=== PATIENT | male | born 1940 | race Caucasian/White ===

== ENCOUNTER 2016-08-12 15:29 | Emergency (ER) | payer MEDICARE ==
[~2016-08-12] VITALS: Ht 190.5 cm; Wt 74.8 kg
[~2016-08-12 15:29] MED LIST: ACYCLOVIR800 MG PO; AMOXICILLIN AND1 TA2 PO; ASPIRIN 81MG TA81 MG PO; ASPIRIN EC325 M1; ASPIRIN EC325 MG PO; AVODART0.5 MG PO; AZILECT1 MG PO; BACTRIM DS 8001 TA1 PO; BACTRIM DS 8001 TAB PO; CALCIUM CARBONA1 TAB PO; CARBIDOPA AND L1 TA2 PO; CARBIDOPA/LE1 TABLE2 PO; CARVEDILOL3.125 M1 PO; CARVEDILOL3.125 MG PO; CEFUROXIME AXE250 MG PO; CENTRUM SILVER1 TAB PO; CIPRO 500MG TA500 MG PO; CIPROFLOXACIN500 M2 PO; COREG 3.125M3.125 MG PO; CRESTOR5 MG PO; DICLOFENAC 50MG50 MG PO; DIFLUCAN150 MG PO; DIGESTIVE ADVANTAGE PO; DITROPAN 5MG TAB5 MG PO; DOXYCYCLINE; Docusate Sodiu100 MG PO; ERYTHROMYCIN 2250 M3 PO; EVAC-U-GEN8.6 M1 PO; FLOMAX 0.4MG C0.4 MG PO; FUROSEMIDE40 MG PO; GABAPENTIN 400400 MG PO; HIPREX1 GM PO; HYDROCODONE 7.51 TAB PO; HYDROXYZINE 25M25 MG PO; INDOCIN25 M1; INDOCIN25 MG PO; ISO GENTAM120 MG/100 IV; JANUVIA50 MG PO; LEVOFLOXACIN 5500 MG PO; LISINOPRIL2.5 MG NG; METAXALONE800 MG PO; METFORMIN1000 MG; METFORMIN1000 MG PO; METHOCARBAMOL750 M1 PO; MIRALAX17 GM/PACK PO; NAPROXEN SODIU500 MG PO; NIACIN TIME RE500 MG; NITROFURANTOIN100 M4 PO; NORTRIPTYLINE H50 M1 PO; NYSTATIN C30 GM/TUBE EX; NYSTATIN TO30 GM/BOT TP; OMEPRAZOLE20 MG PO; PLAVIX 75MG TAB75 MG PO; PRAVASTATIN 40M40 MG PO; PROBIOTIC FORMU1 CA1 PO; RANITIDINE HCL150 MG PO; REMERON15 MG PO; REQUIP3 MG; ROCEPHIN 1 GM AD1 GM IM; ROPINIROLE HYDRO1 MG PO; ROPINIROLE HYDRO3 MG PO; SENNA8.6 M2 PO; SKELAXIN 800MG800 MG PO; STOOL SOFTENER240 MG PO; SULFAMETHOXAZOL PO; TOVIAZ4 MG PO; TRADJENTA5 MG PO; TRAMADOL 50MG T50 M1 PO; VANCOCIN PO; VITAMIN D31000 IU PO; VITAMIN D50000 I1 PO; ZANTAC 150150 MG PO; Zofran4 MG PO
--- NOTE | 2016-08-12 15:43 | Emergency Room Report ---
History of Present Illness Time Seen by [id number] Presenting Problem in Triage Pt arrived:Ambulance Stretcher Presenting Problem:BEING TREATED FOR UTI CURRENTLY WITH IV ATB'S ; FAMILY REQUEST PATIENT BE SENT TO ED TO BE EVALUATED; THAT HE DOESN'T LOOK WELL; NURSE REPORT STATES HASN'T WITNESSED ANY ABNORMALITIES, BUT THAT FAMILY STATED HE VOMITED. ALERT, ORIENTED TO SELF AND PLACE. GCS 14. PT WITH MINIMUM MOVEMENT DUE TO DISEASE PROCESSES. 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 N Clinical Suspician of Infection? N Mental Status: 1 - Regular (Normal Baseline) Sepsis Risk:Low Sepsis Risk Have you (or family members/close friends) recently traveled outside the [place]? N If Yes, where/when: Have you had exposure to infectious disease within the past month? TB? Other? Specify: Comment History obtained from patient and family, predominantly from family. They state that he was just released from this hospital on 3 days ago where he was admitted for vomiting. He is also being treated for urinary tract infection. He has a long-standing suprapubic catheter. He has a PICC line for intravenous antibiotics. He was sent to [facility] for rehabilitation. Family states that he looked good when he was discharged, but has declined in the past 2 days. Today he is vomiting all day and they describe it as brown and foul smelling, possibly feculent. They state that prior to this illness he was living at home, ambulatory. He has not walked since he was admitted to the hospital recently. The patient complains of hurting all over. ALLERGIES Coded Allergies: No Known Allergies (08/12/16) Home Medications Active Scripts Erythromycin (Erythromycin 250MG. Cap) 250 MG PO AC 7 Days Prov: 08/09/16 Gentamicin in NaCl, Iso-Osm (Iso Gentamicin 120 MG/100 Ml) 360 MG IV DAILY 14 Days Prov: 08/09/16 Reported Medications METFORMIN HCL (Metformin) 1,000 MG PO BID #60 TAB ROPINIROLE HCL (Ropinirole 1MG) 1.5 MG PO BID Sitagliptin Phosphate (Januvia) 100 MG PO DAILY Carvedilol (Carvedilol 3.125MG) 3.125 MG PO BID Methenamine Hippurate (Hiprex) 1 GM PO BID CARBIDOPA 25/LEVODOPA 100 (Carbidopa-Levodopa 25-100 Tab) 2 TABLET PO QID ROPINIROLE HCL (Ropinirole Hydrochloride) 3 MG PO QHS #120 Methocarbamol 750 MG PO PRN PRN MUSCLE RELAXER #180 TAB ASPIRIN (Aspirin) 81 MG PO DAILY Oxybutynin Chloride (Ditropan 5MG Tab) 5 MG PO BID #60 Omeprazole (Omeprazole 20MG) 20 MG PO DAILY Hydroxyzine Pamoate (Hydroxyzine) 25 MG PO Q6HP PRN ANXIETY Sennosides (Evac-U-Gen) 17.2 MG PO PRN PRN CONSTIPATION Rosuvastatin Calcium (Crestor) 5 MG PO QHS Polyethylene Glycol 3350 (Miralax) 17 GM PO DAILY Discontinued Reported Medications CEFUROXIME AXETIL (Cefuroxime 250MG Tab) 500 MG PO BID History Medical History General CAD? No Angina: Yes OK: Yes Hypertension? Yes Hyperlipidemia? Yes CHF? No DVT? No PE? No COPD? No Asthma? No Anemia? No GERD? No Gastric ulcers? No GI Bleed? No Hernia? No Thyroid Problems? No Hypothyroidism? No CVA? No Seizures? No Diabetes? Yes Insulin Dependent: No Insulin Pump: No Home FSBS? Yes Renal Insuffiency? No End Stage Renal Disease? No UTI? Yes Stones? No BPH? Yes GB Disease: No Nephritic Syndrome? No Asplenia? No Hepatitis? No Sickle Cell Disease? No Arthritis? Yes Migraines? No Cataracts? No Glaucoma? No MRSA? No HIV? No TB? No Anxiety? Yes Depression? Yes Cancer? Yes Site: PROSTATE More? No Immunization Hx Ped.Immunizations UTD Yes DT/Tetanus > 10 Years Ago Flu 2016-17FSN Pneumonia Received In Past Surgical Hx Previous Surgery?Y CABG 4 VESSEL 1989 BACK SURGERY X4 HEMMORHOIDECTOMY 1975 TONSILLECTOMY 1963 CERVICAL DISC SURGERY CATARACT SURGERY Prostate Procedures SUPRAPUBIC CATHETER Family History Family Hx Diabetes Yes CAD Yes Hypertension Yes Hyperlipidemia Yes Cancer Yes TB No Social History Smoking Hx Smoker: Former Smoker Tobacco: No Type Cigarettes Packs/day < 1 Pack Are you/the child exposed to second-hand smoke: No Alcohol Alcohol: No Review of Systems All Other Systems Reviewed and Negative Constitutional denies fever, malaise, weakness Gastrointestinal see HPI, abdominal pain (slight), vomiting Physical Exam Vital Signs Vital Signs Date Time Temp Pulse Resp B/P Pulse O2 O2 Flow FiO2 Ox Delivery Rate 08/12 1933 97.9 83 18 112/75 97 08/12 1919 83 18 112/75 97 08/12 1530 97.9 88 18 116/77 98 General Appearance appears chronically ill Eye Exam - bilateral eye normal exam, bilateral eye PERRL, bilateral eye EOMI Ear, Nose, Throat hearing grossly normal, normal ENT inspection Neck normal inspection, non-tender, supple, full range of motion Respiratory Status Yes: trachea midline, chest symmetrical, non tender chest. No: respiratory distress. Lung Sounds bilateral: normal breath sounds, lungs clear. Cardiovascular normal exam, regular rate/rhythm, no peripheral edema, no gallop, no JVD, no murmur, no rub, normal peripheral pulses Peripheral Pulses Pulses normal Yes Gastrointestinal normal bowel sounds, soft, no organomegaly, hernia (epigastric, reducible), suprapubic catheter Extremities normal inspection Neurologic alert, reconciliation accountant II-XII nml as tested, normal exam, no motor/sensory deficits, oriented x 3 Mental status normal mood/affect Skin intact, normal color, warm/dry Medical Decision Making LABS/Meds/Orders Pt receiving controlled substance in ED? No Results/Orders Laboratory Tests 08/12/16 1840: Lactic Acid 1.2 08/12/16 1613: Sodium 141, Potassium 4.5, Chloride 105, Carbon Dioxide 27, BUN 28 H, Creatinine 1.1, Estimated Creat Clear 62, Estimated GFR (MDRD) 65, Glucose 95, Calcium 9.1, Total Bilirubin 0.3, AST 14 L, ALT 16, Alkaline Phosphatase 119 H , Troponin I < 0.02, Total Protein 7.6, Albumin 2.8 L, Globulin 4.8 H, Albumin /Globulin Ratio 0.6 L, Amylase 111, Lipase 220, WBC 5.7, RBC 3.96 L, Hgb 11.7 L, Hct 36.3 L, MCV 91.6, RDW 15.1, Plt Count 204, MPV 6.4 L, Gran % 75.9, Gran # 4.3, Lymphocytes % 15.1, Monocytes % 6.9, Eosinophils % 1.9, Basophils % 0.2, Lymphocytes # 0.9, Monocytes # 0.4, Eosinophils # 0.1, Basophils # 0.0, PUBS MCHC 32.2, MCH 29.5 Current Medication Orders Sig/Wang Start time Last Medication Dose Route Stop Time Status Admin Sodium Chloride 1,000 ML .Q1H1M 08/12 1715 DC 08/12 IV 08/12 1815 1815 Sodium Chloride 1,000 ML .STK-MED ONE 08/12 1707 DC IV Sodium Chloride 10 ML PRN PRN 08/12 1600 AC IV 08/13 1553 Orders Procedure Date/time Status DIET-NOTHING BY MOUTH 08/12 D Active LACTIC ACID 08/[address] ABD & PELVIS W/O CONTRAST 08/12 1558 Active 12 LEAD EKG-JUANSON (INITIAL) 08/12 1555 Active ELECTROCARDIOGRAM REQUEST 08/[address] ABD/PELVIS REQ 08/12 1555 Complete CHEST-AP VIEW ONLY 08/12 1555 Active IV SALINE LOCK 08/12 1555 Active TROPONIN I 08/12 1555 Complete LIPASE 08/12 1555 Complete CBC WITH AUTO DIFF 08/12 1555 Complete CHEM 12 PROFILE 08/12 1555 Complete AMYLASE 08/12 1555 Complete CM/EKG CM/EKG Comments EKG interpreted by Tyree Bain MD: Rhythm: sinus Rate: 82 [place]: normal Ectopy: none Conduction: normal ST Segment Changes: Nonspecific T Wave Changes: Nonspecific Q Waves: none No evidence of acute ischemia or injury XRAY/CT/US XRAY/CT/US XRAY chest Comment X-ray interpreted by Tyree Bain M.D.: Rotated, no definite infiltrate. CT abdomen, pelvis Comment CT scan interpreted by [facility] radiologist. 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 No free air. Mild improvement in moderate to severe LEFT hydronephrosis. Large amount of stool in colon, constipation. Progress - 5:25 PM: Case discussed with Dr. Boston. Surgery will be consult regarding whether the patient requires transfer versus admission here. 5:30 p.m.: Discussed case with Dr. Gaitan, surgeon composition teacher. He suggested patient be transferred to [place]. The patient's family prefers [facility], where his urologist practices. He is supposed to have a suprapubic catheter change tomorrow. Dr. Gaitan feels [facility] would be appropriate if they will accept him. Otherwise he suggests [facility]. Family prefers [facility] as a second choice. 6:13 PM: Case discussed with Dr. Scanlon, surgeon at [facility]. He will accept the patient, but once the hospitalist to admit. Hospitalist will be contacted by transfer center to call us. 6:35 PM: Case discussed with Dr. Maxwell, hospitalist. He accepts the patient. Transfer center will call back with bed assignment. 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
--- NOTE | 2016-08-12 15:43 | Emergency Room Report ---
History of Present Illness Time Seen by [id number] Presenting Problem in Triage Pt arrived:Ambulance Stretcher Presenting Problem:BEING TREATED FOR UTI CURRENTLY WITH IV ATB'S ; FAMILY REQUEST PATIENT BE SENT TO ED TO BE EVALUATED; THAT HE DOESN'T LOOK WELL; NURSE REPORT STATES HASN'T WITNESSED ANY ABNORMALITIES, BUT THAT FAMILY STATED HE VOMITED. ALERT, ORIENTED TO SELF AND PLACE. GCS 14. PT WITH MINIMUM MOVEMENT DUE TO DISEASE PROCESSES. 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 N Clinical Suspician of Infection? N Mental Status: 1 - Regular (Normal Baseline) Sepsis Risk:Low Sepsis Risk Have you (or family members/close friends) recently traveled outside the [place]? N If Yes, where/when: Have you had exposure to infectious disease within the past month? TB? Other? Specify: Comment History obtained from patient and family, predominantly from family. They state that he was just released from this hospital on 3 days ago where he was admitted for vomiting. He is also being treated for urinary tract infection. He has a long-standing suprapubic catheter. He has a PICC line for intravenous antibiotics. He was sent to [facility] for rehabilitation. Family states that he looked good when he was discharged, but has declined in the past 2 days. Today he is vomiting all day and they describe it as brown and foul smelling, possibly feculent. They state that prior to this illness he was living at home, ambulatory. He has not walked since he was admitted to the hospital recently. The patient complains of hurting all over. ALLERGIES Coded Allergies: No Known Allergies (08/12/16) Home Medications Active Scripts Erythromycin (Erythromycin 250MG. Cap) 250 MG PO AC 7 Days Prov: 08/09/16 Gentamicin in NaCl, Iso-Osm (Iso Gentamicin 120 MG/100 Ml) 360 MG IV DAILY 14 Days Prov: 08/09/16 Reported Medications METFORMIN HCL (Metformin) 1,000 MG PO BID #60 TAB ROPINIROLE HCL (Ropinirole 1MG) 1.5 MG PO BID Sitagliptin Phosphate (Januvia) 100 MG PO DAILY Carvedilol (Carvedilol 3.125MG) 3.125 MG PO BID Methenamine Hippurate (Hiprex) 1 GM PO BID CARBIDOPA 25/LEVODOPA 100 (Carbidopa-Levodopa 25-100 Tab) 2 TABLET PO QID ROPINIROLE HCL (Ropinirole Hydrochloride) 3 MG PO QHS #120 Methocarbamol 750 MG PO PRN PRN MUSCLE RELAXER #180 TAB ASPIRIN (Aspirin) 81 MG PO DAILY Oxybutynin Chloride (Ditropan 5MG Tab) 5 MG PO BID #60 Omeprazole (Omeprazole 20MG) 20 MG PO DAILY Hydroxyzine Pamoate (Hydroxyzine) 25 MG PO Q6HP PRN ANXIETY Sennosides (Evac-U-Gen) 17.2 MG PO PRN PRN CONSTIPATION Rosuvastatin Calcium (Crestor) 5 MG PO QHS Polyethylene Glycol 3350 (Miralax) 17 GM PO DAILY Discontinued Reported Medications CEFUROXIME AXETIL (Cefuroxime 250MG Tab) 500 MG PO BID History Medical History General CAD? No Angina: Yes DC: Yes Hypertension? Yes Hyperlipidemia? Yes CHF? No DVT? No PE? No COPD? No Asthma? No Anemia? No GERD? No Gastric ulcers? No GI Bleed? No Hernia? No Thyroid Problems? No Hypothyroidism? No CVA? No Seizures? No Diabetes? Yes Insulin Dependent: No Insulin Pump: No Home FSBS? Yes Renal Insuffiency? No End Stage Renal Disease? No UTI? Yes Stones? No BPH? Yes GB Disease: No Nephritic Syndrome? No Asplenia? No Hepatitis? No Sickle Cell Disease? No Arthritis? Yes Migraines? No Cataracts? No Glaucoma? No MRSA? No HIV? No TB? No Anxiety? Yes Depression? Yes Cancer? Yes Site: PROSTATE More? No Immunization Hx Ped.Immunizations UTD Yes DT/Tetanus > 10 Years Ago Flu 2016-17FSN Pneumonia Received In Past Surgical Hx Previous Surgery?Y CABG 4 VESSEL 1989 BACK SURGERY X4 HEMMORHOIDECTOMY 1975 TONSILLECTOMY 1963 CERVICAL DISC SURGERY CATARACT SURGERY Prostate Procedures SUPRAPUBIC CATHETER Family History Family Hx Diabetes Yes CAD Yes Hypertension Yes Hyperlipidemia Yes Cancer Yes TB No Social History Smoking Hx Smoker: Former Smoker Tobacco: No Type Cigarettes Packs/day < 1 Pack Are you/the child exposed to second-hand smoke: No Alcohol Alcohol: No Review of Systems All Other Systems Reviewed and Negative Constitutional denies fever, malaise, weakness Gastrointestinal see HPI, abdominal pain (slight), vomiting Physical Exam Vital Signs Vital Signs Date Time Temp Pulse Resp B/P Pulse O2 O2 Flow FiO2 Ox Delivery Rate 08/12 1933 97.9 83 18 112/75 97 08/12 1919 83 18 112/75 97 08/12 1530 97.9 88 18 116/77 98 General Appearance appears chronically ill Eye Exam - bilateral eye normal exam, bilateral eye PERRL, bilateral eye EOMI Ear, Nose, Throat hearing grossly normal, normal ENT inspection Neck normal inspection, non-tender, supple, full range of motion Respiratory Status Yes: trachea midline, chest symmetrical, non tender chest. No: respiratory distress. Lung Sounds bilateral: normal breath sounds, lungs clear. Cardiovascular normal exam, regular rate/rhythm, no peripheral edema, no gallop, no JVD, no murmur, no rub, normal peripheral pulses Peripheral Pulses Pulses normal Yes Gastrointestinal normal bowel sounds, soft, no organomegaly, hernia (epigastric, reducible), suprapubic catheter Extremities normal inspection Neurologic alert, director of regional sales II-XII nml as tested, normal exam, no motor/sensory deficits, oriented x 3 Mental status normal mood/affect Skin intact, normal color, warm/dry Medical Decision Making LABS/Meds/Orders Pt receiving controlled substance in ED? No Results/Orders Laboratory Tests 08/12/16 1840: Lactic Acid 1.2 08/12/16 1613: Sodium 141, Potassium 4.5, Chloride 105, Carbon Dioxide 27, BUN 28 H, Creatinine 1.1, Estimated Creat Clear 62, Estimated GFR (MDRD) 65, Glucose 95, Calcium 9.1, Total Bilirubin 0.3, AST 14 L, ALT 16, Alkaline Phosphatase 119 H , Troponin I < 0.02, Total Protein 7.6, Albumin 2.8 L, Globulin 4.8 H, Albumin /Globulin Ratio 0.6 L, Amylase 111, Lipase 220, WBC 5.7, RBC 3.96 L, Hgb 11.7 L, Hct 36.3 L, MCV 91.6, RDW 15.1, Plt Count 204, MPV 6.4 L, Gran % 75.9, Gran # 4.3, Lymphocytes % 15.1, Monocytes % 6.9, Eosinophils % 1.9, Basophils % 0.2, Lymphocytes # 0.9, Monocytes # 0.4, Eosinophils # 0.1, Basophils # 0.0, PUBS MCHC 32.2, MCH 29.5 Current Medication Orders Sig/Wang Start time Last Medication Dose Route Stop Time Status Admin Sodium Chloride 1,000 ML .Q1H1M 08/12 1715 DC 08/12 IV 08/12 1815 1815 Sodium Chloride 1,000 ML .STK-MED ONE 08/12 1707 DC IV Sodium Chloride 10 ML PRN PRN 08/12 1600 AC IV 08/13 1553 Orders Procedure Date/time Status DIET-NOTHING BY MOUTH 08/12 D Active LACTIC ACID 08/[address] ABD & PELVIS W/O CONTRAST 08/12 1558 Active 12 LEAD EKG-JUANSON (INITIAL) 08/12 1555 Active ELECTROCARDIOGRAM REQUEST 08/[address] ABD/PELVIS REQ 08/12 1555 Complete CHEST-AP VIEW ONLY 08/12 1555 Active IV SALINE LOCK 08/12 1555 Active TROPONIN I 08/12 1555 Complete LIPASE 08/12 1555 Complete CBC WITH AUTO DIFF 08/12 1555 Complete CHEM 12 PROFILE 08/12 1555 Complete AMYLASE 08/12 1555 Complete CM/EKG CM/EKG Comments EKG interpreted by Tyree Bain MD: Rhythm: sinus Rate: 82 [place]: normal Ectopy: none Conduction: normal ST Segment Changes: Nonspecific T Wave Changes: Nonspecific Q Waves: none No evidence of acute ischemia or injury XRAY/CT/US XRAY/CT/US XRAY chest Comment X-ray interpreted by Tyree Bain M.D.: Rotated, no definite infiltrate. CT abdomen, pelvis Comment CT scan interpreted by [facility] radiologist. 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 No free air. Mild improvement in moderate to severe LEFT hydronephrosis. Large amount of stool in colon, constipation. Progress - 5:25 PM: Case discussed with Dr. Boston. Surgery will be consult regarding whether the patient requires transfer versus admission here. 5:30 p.m.: Discussed case with Dr. Gaitan, surgeon education associate. He suggested patient be transferred to [place]. The patient's family prefers [facility], where his urologist practices. He is supposed to have a suprapubic catheter change tomorrow. Dr. Gaitan feels [facility] would be appropriate if they will accept him. Otherwise he suggests [facility]. Family prefers [facility] as a second choice. 6:13 PM: Case discussed with Dr. Scanlon, surgeon at [facility]. He will accept the patient, but once the hospitalist to admit. Hospitalist will be contacted by transfer center to call us. 6:35 PM: Case discussed with Dr. Maxwell, hospitalist. He accepts the patient. Transfer center will call back with bed assignment. 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
[2016-08-12 16:26] LABS: HEMOGLOBIN 11.7 g/dL (14.1-18.0); LYMPH # 0.9 K/mm3 (0.7-4.5); LYMPH % 15.1 % (10-50)
[2016-08-12 16:40] LABS: BUN 28 mg/dL (7-18); GFR (ESTIMATED) 65 ML/MIN (>60)
[2016-08-12 19:34] VITALS: BP 112/75
--- NOTE | 2016-08-13 11:12 | RADIOLOGY REPORT PS360 ---
CHEST-AP VIEW ONLY ORDERING PHYSICIAN : Tyree Bain MD PATIENT AGE: 75 years GENDER: Male INDICATION: chest symptoms vomiting vomiting PROCEDURE:Supine AP abdomen CHEST-AP VIEW ONLY COMPARISON: None available FINDINGS:-- Patient contracted unable straighten thus this limited chest film rotated the left and distorted. PICC line enters from the right arm with tip at SVC Right lung appears clear mild hyperexpansion Appears to be infiltrate at the medial left lung base, left infrahilar region, medial left base retrocardiac region on this study. A follow-up more optimal AP chest would be helpful to confirm left upper lung field appears clear. Median sternotomy & CABG No pneumothorax. No pleural effusion. Heart appears mildly enlarged with no CHF . Brower rods with postsurgical changes of lumbar spine & lower thoracic spine IMPRESSION Limited chest film very rotated to the left distorts the chest. Appears to be patchy moderate infiltrate medial left lung base/LLL on this chest film Correlation required. Follow-up suggested
--- NOTE | 2016-08-13 11:12 | RADIOLOGY REPORT PS360 ---
CHEST-AP VIEW ONLY ORDERING PHYSICIAN : Tyree aBin MD PATIENT AGE: 75 years GENDER: Male INDICATION: chest symptoms vomiting vomiting PROCEDURE:Supine AP abdomen CHEST-AP VIEW ONLY COMPARISON: None available FINDINGS:-- Patient contracted unable straighten thus this limited chest film rotated the left and distorted. PICC line enters from the right arm with tip at SVC Right lung appears clear mild hyperexpansion Appears to be infiltrate at the medial left lung base, left infrahilar region, medial left base retrocardiac region on this study. A follow-up more optimal AP chest would be helpful to confirm left upper lung field appears clear. Median sternotomy & CABG No pneumothorax. No pleural effusion. Heart appears mildly enlarged with no CHF . Brower rods with postsurgical changes of lumbar spine & lower thoracic spine IMPRESSION Limited chest film very rotated to the left distorts the chest. Appears to be patchy moderate infiltrate medial left lung base/LLL on this chest film Correlation required. Follow-up suggested
--- NOTE | 2016-08-15 13:51 | RADIOLOGY REPORT PS360 ---
CT ABD PELVIS W/O CONTRAST ORDERING PHYSICIAN : Tyree Bain MD PATIENT AGE: 75 years GENDER: Male INDICATION: VOMITING,? FECULENT, R/O SBO TECHNIQUE: Helical CT scanning with no oral nor IV contrast. Sagittal coronal reconstructions on CT workstation. COMPARISON: 08/06/2016 CT abdomen pelvis FINDINGS [Lack of IV and oral contrast decreases sensitivity in evaluating abdomen pelvis Also Extensive Streak artifact metallic hardware and spine, with fixation rods extending from lower thoracic to lumbar spine decreases resolution. . Old compression severe wedge compression fracture L2.. Dextroscoliosis most evident at this L2 level Lung bases. On minimal patchy airspace disease at left lung base reflecting atelectasis and suspect of infiltrate left lower lobe posteriorly. Right lung is clear. Extensive calcification coronary arteries. CABG. LIVER. The most significant new finding is moderately extensive portal venous gas branching through the liver. This is seen particularly at the left lobe anterior right lobe also with film most prominent gas seen at the confluence of portal vein at hilum of liver. STOMACH... The prominent distention seen on 08/06/2016 is less pronounced today. There is still generous fluid moderate distending the stomach. .*Most significant on today's study is the nondependent air within the proximal gastric wall. Cardiac and fundus.. Specifically note abnormal gas within* & along posterior wall of the gastric fundus. Also curious nondependent air at medial cardiac stomach towards GE junction. Appears to correlate with the portal venous gas. Findings concerning for pneumatosis/potential reflecting gastric necrosis/ischemia . Pneumatosis intestinalis and portal venous gas can be seen with vascular mesenteric disease, intestinal obstruction. Enterocolitis. Injection necrosis of the materials, trauma. However there are benign conditions not limited to COPD asthma scleroderma and medications or endoscopy Pancreas: unremarkable no ductal dilatation. Spleen:. Unremarkable. Normal size. Adrenals: unremarkable. Kidneys. LEFT KIDNEY. Less pronounced hydronephrosis and improvement of the the previous prominent dilatation of the left renal pelvis since 08/06/2016. Left ureteral stent remains in place with proximal pigtail just above the left UPJ and lower pigtail of bladder.. Stable since prior study. 7.5 x 3 mm mm mm calculus at posterior mid left kidney has migrated upward from the lower pole, since prior study. ..2 tiny less than 4 mm calculus at lower pole calyx persist. RIGHT KIDNEY unremarkable. Large Bowel. Copious stool throughout the redundant colon reflecting constipation, obstipation. Diverticulosis most evident at sigmoid colon. Small bowel. Generous gas throughout small bowel. Borderline distention of small bowel loops. No significant increase fluid. No free fluid no free air in abdomen or pelvis. Terminal ileum unremarkable. Region of appendix unremarkable. Urinary bladder:Pedraza catheter in place drains the bladder moderate size prostate. Conclusion [facility] report which was communicated to the ER physician ----IMPRESSION 1. Abnormal air, gas within thickened gastric wall is seen at posterior fundus and cardia of stomach..; . This is associated with significant,/generous amount evident Portal venous gas.. 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 Additional comments & discussion in text. (Note Findings were communicated to ER by [facility]) 2.. Left ureteral stent remains. Mild improvement in the moderate-generous left hydronephrosis . Migration the largest 7.5 x 3 mm mm calculus to the mid left kidney calyx, from the lower pole calyx also noted a since prior study 08/06/2016. 3. Copious, large amount stool throughout the colon reflecting constipation. Diverticulosis no diverticulitis 4. Minimal airspace disease partially imaged at the posterior left lung base. Suspect patchy infiltrate associated with atelectasis left lower lobe Warrants follow-up chest films
== END 2016-08-12 19:30 | disposition short-term general hospital (02) ==
LOC: ER 15:29
PROVIDERS: Emergency Medicine
DX: I81 Portal vein thrombosis (principal); Q45.8 Other specified congenital malformations of digestive system; N13.30 Unspecified hydronephrosis; K59.00 Constipation, unspecified; I10 Essential (primary) hypertension; Z87.891 Personal history of nicotine dependence; R11.10 Vomiting, unspecified

== ENCOUNTER → 2016-12-11 | Outpatient (CLI) | payer MEDICARE, MEDICAID | LOC: LAB 18:20 | DX: L98.419 Non-pressure chronic ulcer of buttock with unspecified severity (principal); L89.159 Pressure ulcer of sacral region, unspecified stage; L89.309 Pressure ulcer of unspecified buttock, unspecified stage ==